=== PATIENT | male | born 1955 | race Caucasian/White ===

== ENCOUNTER 2017-05-16 09:01 | Emergency (ER) | payer MEDICARE ==
[~2017-05-16] VITALS: Ht 182.9 cm; Wt 130.0 kg
[~2017-05-16 09:01] MED LIST: DIGOXIN0.25 MG PO; DIOVAN80 MG PO; FEOSOL65 MG PO; FLEXERIL OR; FLEXERIL PO; HUMULIN 70/30 K1 INJ SC; HUMULIN R1 M1 SC; HUMULIN R1 ML IJ; JANUMET1 TA1 PO; LANTUS100 MG/ML SC; LOPID600 MG PO; MAXIDE1 COMBO PO; MORPHINE SUL30 MG PO; MULTIVITAMI1 PO; TYLENOL # 31 TAB PO; TYLENOL #4 PO; VITAMIN B-12500 MC1 PO; VITAMIN C1000 MG PO; [UNRECOGNIZED DRUG - OTHER] PO
[2017-05-16 10:35] LABS: HEMATOCRIT 37.5 % (39.0-50.0); IMMATURE GRANULOCYTES 0.3 % (0.0-1.0); MEAN CELL VOLUME 86.4 fL CALC (80.0-100.0); MEAN CORPUSCULAR HGB CONC 34.7 g/L CALC (32.0-36.0); NEUT# 6.41 thou/uL (1.82-7.42); RED BLOOD COUNT 4.34 mill/uL (4.70-6.10); RED CELL DISTRI WIDTH 12.6 % (11.5-15.5)
[2017-05-16 10:58] LABS: ANION GAP 15 (6-22 (CALC)); BUN 18 mg/dL (8-23); BUN/CREATININE RATIO 23 (12-20 (CALC)); CARBON DIOXIDE 29 mmol/l (22-30); CHLORIDE 102 mmol/l (95-108); CREATININE 0.8 mg/dL (0.7-1.3); GFR > 60 ML/MIN (>=60 (CALC)); GFR FOR AFR.AMER. > 60 ML/MIN (>=60 (CALC)); POTASSIUM 3.4 mmol/l (3.5-5.1); SODIUM 142 mmol/l (137-146)
[2017-05-16 11:49] LABS: HEMATOCRIT 39.4 % (39.0-50.0); HEMOGLOBIN 13.6 g/dl (14.0-18.0); IMMATURE GRANULOCYTES 0.5 % (0.0-1.0); MEAN CELL VOLUME 86.2 fL CALC (80.0-100.0); MEAN CORPUSCULAR HGB 29.8 pG CALC (26.0-32.0); MEAN CORPUSCULAR HGB CONC 34.5 g/L CALC (32.0-36.0); NEUT# 8.75 thou/uL (1.82-7.42); RED BLOOD COUNT 4.57 mill/uL (4.70-6.10); RED CELL DISTRI WIDTH 12.6 % (11.5-15.5)
[2017-05-16 12:28] VITALS: BP 154/72
== END 2017-05-16 12:38 | disposition left against medical advice (07) ==
LOC: ED 09:01
PROVIDERS: Family Medicine
DX: R07.9 Chest pain, unspecified (principal); R53.1 Weakness

== ENCOUNTER 2018-06-04 13:03 | Emergency (ER) | payer MEDICARE ==
[~2018-06-04] VITALS: Ht 182.9 cm; Wt 118.2 kg
[~2018-06-04 13:03] MED LIST changes: -CINNAMON500 M1 PO; -CYCLOBENZAPR5 MG PO; -HYDROXYCHLOR200 M1 PO; -LANTUS100 UNIT/M SC; -LOSARTAN POT50 MG PO; -LYRICA50 MG PO; -METFORMIN500 MG PO; -MORPHINE SULFAT30 M1 PO; -ROBITUSSIN AC10 ML PO; -TYLENOL CODEINE PO
[2018-06-04 14:03] LABS: IMMATURE GRANULOCYTES 0.9 % (0.0-5.0); MEAN CELL VOLUME 85.9 fL CALC (80.0-100.0); MEAN CORPUSCULAR HGB 27.6 pG CALC (26.0-32.0); MEAN CORPUSCULAR HGB CONC 32.1 g/L CALC (32.0-36.0); NEUT# 10.32 thou/uL (1.82-7.42); RED BLOOD COUNT 3.48 mill/uL (4.70-6.10); RED CELL DISTRI WIDTH 13.9 % (11.5-15.5)
[2018-06-04 14:06] LABS: HEMATOCRIT 29.9 % (39.0-50.0); HEMOGLOBIN 9.6 g/dl (14.0-18.0)
[2018-06-04 14:17] LABS: ALBUMIN 2.9 g/dL (3.2-5.0); ALKALINE PHOSPHATASE 76 u/l (38-126); ANION GAP 15 (6-22 (CALC)); BILIRUBIN, TOTAL 0.3 mg/dL (0.0-1.4); BUN 14 mg/dL (8-23); BUN/CREATININE RATIO 25 (12-20 (CALC)); CARBON DIOXIDE 27 mmol/l (22-30); CHLORIDE 99 mmol/l (95-108); CREATININE 0.5 mg/dL (0.7-1.3); GFR > 60 ML/MIN (>=60 (CALC)); GFR FOR AFR.AMER. > 60 ML/MIN (>=60 (CALC)); POTASSIUM 3.8 mmol/l (3.5-5.1); SGOT/AST 14 u/l (19-48); SODIUM 137 mmol/l (137-146); TOTAL PROTEIN 6.3 g/dL (6.3-8.2)
[2018-06-04 14:21] LABS: LIPASE 39 u/l (23-300)
[2018-06-04] MEDS ORDERED: ROBITUSSIN AC10 ML PO (16:32)
[2018-06-04 16:33] LABS: URINE BILIRUBIN - DIPSTICK NEGATIVE (NEGATIVE); URINE BLOOD DIPSTICK TRACE-INTACT (NEGATIVE); URINE COLOR YELLOW; URINE GLUCOSE - DIPSTICK NEGATIVE (NEGATIVE); URINE KETONE NEGATIVE (NEGATIVE); URINE LEUK ESTERASE NEGATIVE (Negative); URINE NITRITE - DIPSTICK NEGATIVE (Negative); URINE PROTEIN - DIPSTICK NEGATIVE (NEG-TRACE); URINE SPECIFIC GRAVITY 1.025; URINE UROBILINOGEN - DIPSTICK 0.2 E.U./dL (0.2)
[2018-06-04] MEDS ORDERED: LYRICA50 MG PO (16:34)
[2018-06-04 16:35] LABS: URINE CLARITY CLEAR
[2018-06-04] MEDS ORDERED: MORPHINE SULFAT30 M1 PO (16:36)
[2018-06-04] MEDS ORDERED: LOSARTAN POT50 MG PO (16:37)
[2018-06-04] MEDS ORDERED: METFORMIN500 MG PO (16:40)
[2018-06-04] MEDS ORDERED: LANTUS100 UNIT/M SC (16:47)
[2018-06-04] MEDS ORDERED: TYLENOL CODEINE PO (16:51)
[2018-06-04] MEDS ORDERED: CYCLOBENZAPR5 MG PO (16:52)
[2018-06-04] MEDS ORDERED: HYDROXYCHLOR200 M1 PO (17:21)
[2018-06-04] MEDS ORDERED: CINNAMON500 M1 PO (17:29)
[2018-06-04 19:25] VITALS: BP 147/80
--- NOTE | 2018-06-07 07:35 | NUR ---
CRITICAL PRELIMINARY CULTURE RESULTS CALLED AND FAXED TO RICARDO LOERA AT [address] 2 BOTTLES GRAM (+) COCCI. FAX# [phone] FINAL C+S TO FOLLOW AVAILABLE.
== END 2018-06-04 19:27 | disposition short-term general hospital (02) ==
LOC: ED 13:03 → ED-I 15:00 → ED 19:27
PROVIDERS: Emergency Medicine
DX: J86.9 Pyothorax without fistula (principal); R10.31 Right lower quadrant pain; D64.9 Anemia, unspecified; E11.9 Type 2 diabetes mellitus without complications; I11.0 Hypertensive heart disease with heart failure; I50.9 Heart failure, unspecified; M06.9 Rheumatoid arthritis, unspecified; M32.9 Systemic lupus erythematosus, unspecified
CPT/HCPCS: Q9967

== ENCOUNTER → 2018-06-04 | Outpatient (REF) | payer MEDICARE ==
[~2018-06-04] MED LIST changes: +CINNAMON500 M1 PO; +CYCLOBENZAPR5 MG PO; +HYDROXYCHLOR200 M1 PO; +LANTUS100 UNIT/M SC; +LOSARTAN POT50 MG PO; +LYRICA50 MG PO; +METFORMIN500 MG PO; +MORPHINE SULFAT30 M1 PO; +ROBITUSSIN AC10 ML PO; +TYLENOL CODEINE PO
[2018-06-04 12:02] LABS: IMMATURE GRANULOCYTES 0.7 % (0.0-5.0); MEAN CELL VOLUME 86.5 fL CALC (80.0-100.0); MEAN CORPUSCULAR HGB 27.4 pG CALC (26.0-32.0); MEAN CORPUSCULAR HGB CONC 31.7 g/L CALC (32.0-36.0); NEUT# 15.35 thou/uL (1.82-7.42); RED BLOOD COUNT 2.3 mill/uL (4.70-6.10); RED CELL DISTRI WIDTH 13.9 % (11.5-15.5)
[2018-06-04 12:10] LABS: HEMATOCRIT 19.9 % (39.0-50.0); HEMOGLOBIN 6.3 g/dl (14.0-18.0)
[2018-06-04 12:17] LABS: ALKALINE PHOSPHATASE 83 u/l (38-126); ANION GAP 15 (6-22 (CALC)); BILIRUBIN, TOTAL 0.3 mg/dL (0.0-1.4); BUN 14 mg/dL (8-23); BUN/CREATININE RATIO 26 (12-20 (CALC)); CARBON DIOXIDE 29 mmol/l (22-30); CHLORIDE 97 mmol/l (95-108); CREATININE 0.5 mg/dL (0.7-1.3); GFR > 60 ML/MIN (>=60 (CALC)); GFR FOR AFR.AMER. > 60 ML/MIN (>=60 (CALC)); SGOT/AST 15 u/l (19-48); SODIUM 137 mmol/l (137-146); TOTAL PROTEIN 6.5 g/dL (6.3-8.2)
== END | disposition home or self-care (01) ==
LOC: LABSPEC 11:39
PROVIDERS: ATTEND Internal Medicine
DX: E11.9 Type 2 diabetes mellitus without complications (principal); I10 Essential (primary) hypertension; M06.9 Rheumatoid arthritis, unspecified; M32.9 Systemic lupus erythematosus, unspecified

== ENCOUNTER → 2018-06-26 | Outpatient (REF) | payer MEDICARE ==
[~2018-06-26] MED LIST changes: +CINNAMON500 M1 PO; +CYCLOBENZAPR5 MG PO; +HYDROXYCHLOR200 M1 PO; +LANTUS100 UNIT/M SC; +LOSARTAN POT50 MG PO; +LYRICA50 MG PO; +METFORMIN500 MG PO; +MORPHINE SULFAT30 M1 PO; +ROBITUSSIN AC10 ML PO; +TYLENOL CODEINE PO
== END | disposition home or self-care (01) ==
LOC: LABSPEC 18:22
PROVIDERS: ATTEND Internal Medicine
DX: J43.0 Unilateral pulmonary emphysema [MacLeod's syndrome] (principal); Z79.2 Long term (current) use of antibiotics

== ENCOUNTER → 2018-06-30 | Outpatient (REF) | payer MEDICARE ==
[2018-06-30 18:46] LABS: HEMATOCRIT 30.2 % (39.0-50.0); HEMOGLOBIN 9.2 g/dl (14.0-18.0); IMMATURE GRANULOCYTES 0.4 % (0.0-5.0); MEAN CELL VOLUME 90.7 fL CALC (80.0-100.0); MEAN CORPUSCULAR HGB 27.6 pG CALC (26.0-32.0); MEAN CORPUSCULAR HGB CONC 30.5 g/L CALC (32.0-36.0); NEUT# 4.65 thou/uL (1.82-7.42); RED BLOOD COUNT 3.33 mill/uL (4.70-6.10); RED CELL DISTRI WIDTH 15.9 % (11.5-15.5)
[2018-06-30 19:18] LABS: ALBUMIN 2.9 g/dL (3.2-5.0); ALKALINE PHOSPHATASE 92 u/l (38-126); ANION GAP 12 (6-22 (CALC)); BILIRUBIN, TOTAL 0.2 mg/dL (0.0-1.4); BUN 15 mg/dL (8-23); BUN/CREATININE RATIO 22 (12-20 (CALC)); CARBON DIOXIDE 28 mmol/l (22-30); CHLORIDE 104 mmol/l (95-108); CREATININE 0.7 mg/dL (0.7-1.3); GFR > 60 ML/MIN (>=60 (CALC)); GFR FOR AFR.AMER. > 60 ML/MIN (>=60 (CALC)); POTASSIUM 4.1 mmol/l (3.5-5.1); SGOT/AST 17 u/l (19-48); SODIUM 140 mmol/l (137-146); TOTAL PROTEIN 5.6 g/dL (6.3-8.2)
== END | disposition home or self-care (01) ==
LOC: LABSPEC 18:04
PROVIDERS: ATTEND Internal Medicine Infectious Disease
DX: Z51.81 Encounter for therapeutic drug level monitoring (principal); Z79.2 Long term (current) use of antibiotics

== ENCOUNTER 2020-06-04 11:48 | Inpatient (IN) | payer MEDICARE ==
[2020-06-04] VITALS (8 sets, daily range): BP systolic 104–140; BP diastolic 51–60
[~2020-06-04] VITALS: Ht 182.9 cm; Wt 126.0 kg
[~2020-06-04 11:48] MED LIST changes: +COZAAR100 MG PO; -LOSARTAN POT50 MG PO
--- NOTE | 2020-06-04 11:48 | NUR ---
TO ROOM 9 VIA EMS STRETCHER; ASSISTED ONTO ER STRETCHER WITH 4 PERSON ASSIST. BEDSIDE REPORT RECEIVED FROM EMS. PT DISORIENTED AND LETHARGIC.
--- NOTE | 2020-06-04 12:05 | NUR ---
NOW AT BEDSIDE. BEDSIDE TRIAGE COMPLETED.
--- NOTE | 2020-06-04 12:07 | NUR ---
STROKE ALERT CALLED
[2020-06-04 12:21] LABS: HEMATOCRIT 33.7 % (39.0-50.0); IMMATURE GRANULOCYTES 3.8 % (0.0-5.0); MEAN CORPUSCULAR HGB 27.4 pG CALC (26.0-32.0); MEAN CORPUSCULAR HGB CONC 28.8 g/dL CAL (32.0-36.0); RED BLOOD COUNT 3.54 mill/uL (4.70-6.10); RED CELL DISTRI WIDTH 14.4 % (11.5-15.5)
[2020-06-04 12:23] LABS: HEMOGLOBIN 9.7 g/dl (14.0-18.0); MANUAL DIFFERENTIAL YES; MEAN CELL VOLUME 95.2 fL CALC (80.0-100.0); PLATELET COUNT 886 thou/uL (130-400)
[2020-06-04 12:27] LABS: GFR > 60 ML/MIN (>=60 (CALC)); GFR FOR AFR.AMER. > 60 ML/MIN (>=60 (CALC))
[2020-06-04 12:39] LABS: BAND 8 % (0-8)
[2020-06-04 12:41] LABS: ALBUMIN 3.2 g/dL (3.2-5.0); BILIRUBIN, TOTAL 0.5 mg/dL (0.0-1.4); CREATININE 1.5 mg/dL (0.7-1.3); TOTAL PROTEIN 6.8 g/dL (6.3-8.2)
[2020-06-04 12:53] LABS: POTASSIUM 2.8 mmol/l (3.5-5.1)
[2020-06-04 13:38] LABS: URINE BLOOD DIPSTICK LARGE (NEGATIVE); URINE COLOR YELLOW; URINE GLUCOSE - DIPSTICK 500 mg/dL (NEGATIVE); URINE KETONE >=80 mg/dL (NEGATIVE); URINE LEUK ESTERASE NEGATIVE (NEGATIVE); URINE NITRITE - DIPSTICK NEGATIVE (Negative); URINE PROTEIN - DIPSTICK TRACE mg/dL (NEG-TRACE); URINE SPECIFIC GRAVITY 1.025; URINE UROBILINOGEN - DIPSTICK 0.2 E.U./dL (0.2)
[2020-06-04 13:41] LABS: URINE BILIRUBIN - DIPSTICK SMALL (NEGATIVE)
[2020-06-04 13:42] LABS: URINE MUCUS FEW hpf (NONE-FEW); URINE RBC 25-50 RBC/hpf (0-5)
--- NOTE | 2020-06-04 14:00 | NUR ---
ADMITTING DR AT BEDSIDE
[2020-06-04 15:52] LABS: BUN 38 mg/dL (8-23); BUN/CREATININE RATIO 31 (12-20 (CALC)); CHLORIDE 104 mmol/l (95-108); CREATININE 1.2 mg/dL (0.7-1.3); GFR > 60 ML/MIN (>=60 (CALC)); GFR FOR AFR.AMER. > 60 ML/MIN (>=60 (CALC)); POTASSIUM 2.8 mmol/l (3.5-5.1); SODIUM 144 mmol/l (137-146)
[2020-06-04] MEDS ORDERED: METOPROL TAR25 MG PO (15:54)
[2020-06-04 15:57] LABS: ANION GAP 36 (6-22 (CALC))
--- NOTE | 2020-06-04 16:04 | NUR ---
662- BLOOD LAB GLUCOSE RESULTED FROM LAB. INSULIN DRIP REMAINS ON AND INFUSING AT 5 UNITS PER HOUR.
[2020-06-04 16:05] LABS: CARBON DIOXIDE 7 mmol/l (22-30)
[2020-06-04 17:30] LABS: BUN 37 mg/dL (8-23); BUN/CREATININE RATIO 33 (12-20 (CALC)); CHLORIDE 107 mmol/l (95-108); CREATININE 1.1 mg/dL (0.7-1.3); GFR > 60 ML/MIN (>=60 (CALC)); GFR FOR AFR.AMER. > 60 ML/MIN (>=60 (CALC)); POTASSIUM 2.9 mmol/l (3.5-5.1); SODIUM 146 mmol/l (137-146)
[2020-06-04 17:35] LABS: ANION GAP 35 (6-22 (CALC))
[2020-06-04 17:37] LABS: CARBON DIOXIDE 7 mmol/l (22-30)
--- NOTE | 2020-06-04 17:43 | NUR ---
DR SPEAR DISCUSSED CRITICAL RESULTS AND PATIENT WITH HOSPITALIST AT THIS TIME.
--- NOTE | 2020-06-04 18:25 | NUR ---
REPORT CALLED TO RICARDO IGLESIAS. ALL QUESTIONS ANSWERED.
--- NOTE | 2020-06-04 18:55 | NUR ---
PATIENT ARRIVES VIA STRETCHER ACCOMPANIED BY ER NURSE, ON BUSINESS AREA DIRECTOR, EYES CLOSED. WAS TRANSFERRED TO BED MAX ASSIST. AWAKENS EASILY WHEN SPOKEN TO, ANSWERS SIMPLE YES/NO QUESTIONS, FOLLOWS COMMANDS. IS ABLE TO RAISE ARMS UP, FEET UP, IS WEAK, BLE DRIFT TO BED. SHOWS HIS TEETH WHEN ASKED TO, NO DROOP NOTED. DENIES PAIN. NURSE ASSESSMENT PERFORMED. STRONG PEDAL PULSES. LEFT PUPIL 3MM BRISK. BLE 2+ PEDAL EDEMA, BLE DISCOLORATION NOTED, BILAT KNEES BRUISED. LEFT HEEL ULCER NOTED, HEELS RAISED FROM BED WITH PILLOW. LEFT BUTTOCK ULCER NOTED/SACRAL REDNESS NOTED. RIGHT- CHEST PORT INTACT, INSULIN DRIP INFUSING AT 5 UNITS/HR. RAC 20 AND LAC 22 G IV'S INTACT, SALINE LOCKED. ST ON TELEMETRY, HR 110'S. ON RA, NO SOB NOTED, SPO2 GREATER THAN 95%. BP 140'S SYSTOLIC. SHARMA PRESENT, NO URINE TO INPECT AT THIS YIME, NER NURSE REPORTS SHE EMPTIED ABOUT 1000 ML OUT. 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
--- NOTE | 2020-06-04 18:55 | NUR ---
1300 CC YELLOW UNRINE OUT OF SHARMA CATHETER AT THIS TIME.
--- NOTE | 2020-06-04 19:30 | NUR ---
BLOOD DRAWN FROM RIGH SIDE CHEST PORT, ACCUCHECK READ CRITICALLY HIGH, BLOOD SENT TO LAB FOR GLUCOSE.
[2020-06-04 19:44] LABS: BUN 37 mg/dL (8-23); BUN/CREATININE RATIO 38 (12-20 (CALC)); CHLORIDE 108 mmol/l (95-108); GFR > 60 ML/MIN (>=60 (CALC)); GFR FOR AFR.AMER. > 60 ML/MIN (>=60 (CALC)); SODIUM 148 mmol/l (137-146)
[2020-06-04 19:52] LABS: ANION GAP 22 (6-22 (CALC)); CARBON DIOXIDE 20 mmol/l (22-30)
[2020-06-04 19:53] LABS: POTASSIUM 2.4 mmol/l (3.5-5.1)
--- NOTE | 2020-06-04 20:11 | NUR ---
CALLED AND SPOKE TO DR CASTELLANOS TO NOTIFY OF [facility] CALLED HERE FOR CLARIFICATION ORDER FOR POTASSIUM CHLORIDE PRN ORDERS, DR LANDEROS WANTS POTASSIUM CHLORIDE TO BE TRANSFUSED UNTIL POTASSIUM IS GREATER THAN 4. ALSO, HE ASKED HOW MUCH IV FLUIDS PATIENT WAS ON, I NOTIFIED HIM PATIENT DID NOT ARRIVE WITH ANY IV FLUIDS, DR GRAY ORDERS NS 1 LITER BOLUS AND THAN 150 ML/HR AFTER. ORDERS SENT TO PHARMACY. 2017: [facility] CALLED TO NOTIFY OF ORDERS SENT.
--- NOTE | 2020-06-04 20:49 | NUR ---
SPOKE TO DR CASTELLANOS TO NOTIFY OF PATIENT NOW ONLY AROUSABLE TO PAINFUL STIMULI, WHEN HE DID ARRIVE HE WAS EASILY AROUSABLE, DROWSY, WAS FOLLOWING COMMANDS, SUCH RAISING HIS LEGS UP, HIS ARMS. WEAK MACHINE STITCHER PRESENT NO DROOP NOTED. DR CASTELLANOS ORDERED TO MONITOR LAB WORK, ELECTROLYTES, CONTINUE MONITORING.
[2020-06-04 21:33] LABS: ANION GAP 16 (6-22 (CALC)); BUN 34 mg/dL (8-23); BUN/CREATININE RATIO 38 (12-20 (CALC)); CARBON DIOXIDE 24 mmol/l (22-30); CHLORIDE 110 mmol/l (95-108); CREATININE 0.9 mg/dL (0.7-1.3); GFR > 60 ML/MIN (>=60 (CALC)); GFR FOR AFR.AMER. > 60 ML/MIN (>=60 (CALC)); POTASSIUM 2.5 mmol/l (3.5-5.1); SODIUM 148 mmol/l (137-146)
--- NOTE | 2020-06-04 21:49 | NUR ---
INSULIN DRIP TITRATED PER PROTOCOL. HEPARIN SUBCUTANEOUS GIVEN. PATIENT OPENS EYES AND CLOSES THEM RIGHT AWAY WHEN SPOKEN TO, HE IS GUARDED. NON-VERBAL. HR REMAINS TACHYCARDIC NO GREATER THAN 120 BPM. BP WNL. O2 GREATER THAN 95%. NO SOB NOTED, HOB ELEVEATED GREATER THAN 30 DEGREES. CALL LIGHT WITHIN REACH.
--- NOTE | 2020-06-04 22:52 | NUR ---
PATIENT NOTED TO TRYING TO TURN ON HIS RIGHT SIDE.
--- NOTE | 2020-06-04 23:04 | NUR ---
ACCUCHECK OBTAINED, NO TITRATION NEEDED PER INSULIN DRIP PROTOCOL. PATIENT OPENS EYES WHEN SPOKEN TO, CLOSES THEM RIGHT AWAY. [facility] CHEST PORT BLOOD OBTAINED FOR 2300 CH7 LAB WORK.
[2020-06-04 23:32] LABS: ANION GAP 13 (6-22 (CALC)); BUN 33 mg/dL (8-23); BUN/CREATININE RATIO 41 (12-20 (CALC)); CARBON DIOXIDE 26 mmol/l (22-30); CHLORIDE 111 mmol/l (95-108); CREATININE 0.8 mg/dL (0.7-1.3); GFR > 60 ML/MIN (>=60 (CALC)); GFR FOR AFR.AMER. > 60 ML/MIN (>=60 (CALC)); POTASSIUM 2.8 mmol/l (3.5-5.1); SODIUM 147 mmol/l (137-146)
[2020-06-05] VITALS (24 sets, daily range): BP systolic 91–154; BP diastolic 46–77
--- NOTE | 2020-06-05 00:29 | NUR ---
ACCUCHECK OBTAINED, NO CHANGES TO INSULIN DRIP. PATIENT IS GUARDED WHEN PERFORMING NURSING CARE. 3RD BAG OF POTASSIUM CHLORIDE 20 MEQ INFUSING NOW. AFEBILE.
--- NOTE | 2020-06-05 01:46 | NUR ---
ORDERS PLACED FOR AIR MATRESS FOR PATIENT WELL WOUND CARE CONSULT, DUE TO LEFT BUTTOCK AND LEFT HEEL ULCERS PRESENT ON ADMISSION. AQUACELL FOAM PAD APPLIED TO BUTTOCK, WELL NON ADHERENT GAUZE WITH GAUZE WRAP TO LEFT HEEL, BOTH CLEANED WITH SALINE AND PATTED DRY. BED BATH PROVIDED. PATIENT WAS ABLE TO HOLD ON TO BED RAILS TO ASSIST, REPOSITIONED TO RIGHT SIDE, HEEL PROTECTORS IN PLACE. HOB 30 DEGREES, NO ACUTE DISTRESS SHOWN.
[2020-06-05] MEDS ORDERED: BESIVANCE0.6 % OD (01:58)
[2020-06-05] MEDS ORDERED: SIMBRINZA1 SUS OD (01:59)
[2020-06-05] MEDS ORDERED: THERA TEARS A0.025 % OU (02:02)
[2020-06-05] MEDS ORDERED: AVENOVA OU (02:04)
[2020-06-05 02:30] LABS: ANION GAP 12 (6-22 (CALC)); BUN 34 mg/dL (8-23); BUN/CREATININE RATIO 47 (12-20 (CALC)); CARBON DIOXIDE 27 mmol/l (22-30); CHLORIDE 112 mmol/l (95-108); CREATININE 0.7 mg/dL (0.7-1.3); GFR > 60 ML/MIN (>=60 (CALC)); GFR FOR AFR.AMER. > 60 ML/MIN (>=60 (CALC)); POTASSIUM 2.7 mmol/l (3.5-5.1); SODIUM 149 mmol/l (137-146)
--- NOTE | 2020-06-05 03:13 | NUR ---
PATIENT IS AWAKE. I ASKED HIM IF HE REMEMBERS WHAT HAPPENED, WHY HE IS HERE. PATIENT STATES," ALL I REMEBER IS THEY BROUGHT ME IN WITH PNEUMONIA." PATIENT WAS EXPLAINED ABOUT HIS HIGH BLOOD SUGARS AND INSULIN DRIP. CALL LIGHT WITHIN REACH.
[2020-06-05 03:35] LABS: ANION GAP 11 (6-22 (CALC)); BUN 30 mg/dL (8-23); BUN/CREATININE RATIO 43 (12-20 (CALC)); CARBON DIOXIDE 27 mmol/l (22-30); CHLORIDE 113 mmol/l (95-108); CREATININE 0.7 mg/dL (0.7-1.3); GFR > 60 ML/MIN (>=60 (CALC)); GFR FOR AFR.AMER. > 60 ML/MIN (>=60 (CALC)); POTASSIUM 2.8 mmol/l (3.5-5.1); SODIUM 148 mmol/l (137-146)
--- NOTE | 2020-06-05 04:20 | NUR ---
patient awakens easily with noise, is able to cooperate, does not guard himself. no acute distress shown. afebrile. call light within reach.
[2020-06-05 05:39] LABS: HEMATOCRIT 28.3 % (39.0-50.0); HEMOGLOBIN 8.6 g/dl (14.0-18.0); IMMATURE GRANULOCYTES 0.8 % (0.0-5.0); MEAN CELL VOLUME 89.3 fL CALC (80.0-100.0); MEAN CORPUSCULAR HGB 27.1 pG CALC (26.0-32.0); MEAN CORPUSCULAR HGB CONC 30.4 g/dL CAL (32.0-36.0); NEUT# 13.39 thou/uL (1.82-7.42); RED BLOOD COUNT 3.17 mill/uL (4.70-6.10); RED CELL DISTRI WIDTH 14.3 % (11.5-15.5)
[2020-06-05 05:42] LABS: BUN 29 mg/dL (8-23); CARBON DIOXIDE 27 mmol/l (22-30); CHLORIDE 114 mmol/l (95-108); CREATININE 0.7 mg/dL (0.7-1.3); GFR > 60 ML/MIN (>=60 (CALC)); GFR FOR AFR.AMER. > 60 ML/MIN (>=60 (CALC)); POTASSIUM 2.6 mmol/l (3.5-5.1); SODIUM 149 mmol/l (137-146)
--- NOTE | 2020-06-05 05:55 | NUR ---
PATIENT IS AWAKE, WHEN ASKED IF HE REMEBERS IF I GAVE HIM AN INJECTION IN THE STOMACH LAST NIGHT, HE STATES, "YES." EXPLAINED HEPARIN INJECTION INDICATION. PATIENT ABLE TO TOLERATE INJCETION. FOLLWOS COMMANDS AFTER REPETETIVE CUEING, SUCH LIFTING HIS ARM UP TO SCAN WRISTBAND.
[2020-06-05 05:59] LABS: ALBUMIN 2.3 g/dL (3.2-5.0)
--- NOTE | 2020-06-05 06:15 | NUR ---
CALLED LAB AND SPOKE TO TONYA REGARDING NO ANION GAP LAB READING THIS MORNING FOR AM LABS. HE REPORTS HE WILL CALL ME BACK REGARDING MATTER.
--- NOTE | 2020-06-05 06:35 | NUR ---
SPOKE TO DR CASTELLANOS REGARDING LAB RESULTS AND GLUCOSE. NOTIFIED OF CURRENT IV FLUIDS. NOTIFIED PATIENT IS MORE ALERT. NEW ORDERS OBTAINED. GIVE POTASSIUM CHLORIDE 80 MEQ PO X1 NOW, FEED PATIENT THIS AM, LANTUS 65 UNITS SUBCUTANEOUS X1 NOW, STOP INSULIN DRIP 1 HR LATER. CHECK POTASSIUM 2 HRS ATER. CAN STOP IV POTASSIUM CHLORIDE PRN 20 MEQ AFTER CURRENT ONE FINISHED INFUSING. CHECK MAGNESIUM. ALL ORDERS PLACED.
--- NOTE | 2020-06-05 07:25 | NUR ---
pt resting in bed with eyes closed; no apparent distress noted; easy to arouse; pt offers no complaints; assessment completed at this time; pt alert and oriented; denies pain; no n/v noted per conventional underwriter; pt appears drowsy/ slow to respond to verbal questions and commands; pt able to answer this conventional underwriter questions and follow call commands requested; resp even and unlabored; lungs clear/ coarse right wallace; skin color wnl; ra; sales account associate cough noted; hr reg; strong pulses; edema noted to ble; st on monitor; discoloration noted to ble; abd soft with bs present; dk green/ tarry stool noted; pericare per staff; vogel to gravity draining well; cath strap intact; #22 saline locked to lfa; #20 patent to rac with ivf/ k-rider infusing without complication; right chest port accessed with insulin gtt per protocol; no redness or edema noted at sites; dressings cdi to left heel and sacrum/buttocks; heel protectors intact; pt repositioned to left side; am meds explained and administered; call light within reach; will continue to monitor
--- NOTE | 2020-06-05 08:03 | NUR ---
resting with eyes closed; easily aroused; offers no complaints; declined breakfast/ staffed offered to feed; vogel to gravity; will continue to monitor
--- NOTE | 2020-06-05 08:05 | NUR ---
spouse called this short story writer; passcode verified; update provided
--- NOTE | 2020-06-05 10:07 | NUR ---
resting in bed with eyes closed; no apparent distress noted; resp even and unlabored; iv intact and patent; no redness or edema noted at site; vogel to gravity; st on monitor; call light within reach; will continue to monitor
--- NOTE | 2020-06-05 12:04 | NUR ---
resting in bed with eyes closed; easily aroused; offers no complaints; iv intact and patent; vogel to gravity; repositioned; database report writer at bedside to attempt to feed pt; pt declined; will attempt later; call light within reach; will continue to monitor
--- NOTE | 2020-06-05 14:20 | NUR ---
pt resting in bed with eyes closed; no apparent distress noted; easily aroused; offers no complaints; remains slow to respond; iv intact and patent; no redness or edema noted at site; st on monito; complete bed bath, catheter care and linen change; black tarry appearing bm noted; specimen collected for occult blood screening; skin pale appearing; repositioned to right side; call light within reach; will continue to monitor
[2020-06-05 16:00] LABS: HEMOGLOBIN 8.2 g/dl (14.0-18.0)
--- NOTE | 2020-06-05 16:03 | NUR ---
resting in bed with eyes closed; no apparent distress noted; sr on monitor; vogel to gravity; call light within reach; will continue to monitor
--- NOTE | 2020-06-05 16:08 | NUR ---
spouse called this flex o writer operator; passcode verified; update provided
--- NOTE | 2020-06-05 17:55 | NUR ---
blood specimen obtained via port for type and screen
--- NOTE | 2020-06-05 18:05 | NUR ---
pt cleansed of XLG loose tarry black stool; pt moved to air mattress at this time; pt noted with redness to cheeks and neck; iv intact and patent; no redness or edema noted at site; sr on monitor; vogel to gravity; repositioned; pt continues to declined meal; plan of care/ type and screen explained; call light within reach
--- NOTE | 2020-06-05 20:00 | NUR ---
PATIENT AWAKENS TO VERBAL STIMULI, CLOSES EYES RIGHT AWAY. IS ORIENTED TO NAME, BIRTHDATE YEAR, AND PLACE ONLY. IS ABLE TO FOLLOW COMMANDS. IS ABLE TO LIFT HIS LEGS UP, MODERATE CONSTRUCTION PROJECT MGR PRESENT BILATERALLY. ON RA, NO SOB NOTED. VS WNL. NURSE ASSESSMNENT PERFORMED.AIR MATRESS INTACT, IVX2 INTACT, FLUSH PROPERLY. RIGHT CHEST PORT INTACT, NS AT 100 ML/HR AND PROTONIX DRIP AT 10 ML/HR. HEEL PROTECTORS IN PLACE AND HEELS ELEVATED WITH PILLOW. EXPLAINED POC. PATIENT IS ABLE TO TURN SLIGHTLY TO RIGHT WHEN ASKED FOR AUSCULTATION OF LS. NO COMPLAINTS OR NEEDS AT THIS TIME. CALL LIGHT WITHIN REACH.
--- NOTE | 2020-06-05 21:10 | NUR ---
PATIENT'S CALLED HERE EARLIER, WAS UNABLE TO TAKE CALL AT THAT TIME. I RETURNED CALL AND SHE WAS ABLE TO PROVIDE PASSCODE. UPDATES PROVIDED, SHE WAS ALSO ABLE TO CONSENT TO TRANSFUSE BLOOD IF PATIENT NEEDS IT.
--- NOTE | 2020-06-05 21:34 | NUR ---
PATIET WAS PULLED UP, HOB HIGH TOLEDO'S. WAS ABLE TO SWALLOW HIS MEDICATIONS WITH PUDDING AND UNSWEETENED TEA. WAS ENCOURAGED TO SPOON FEED HIMSELF, WAS ABLE TO DO IT WITH SOME ASSISTANCE. ORANGE JUICE GIVEN WELL. EYE DROPS INSTILLED ORDERED. HOB REMAINS ELEVATED. CALL LIGHT WITHIN REACH.
--- NOTE | 2020-06-05 22:13 | NUR ---
BLOOD DRAWN FROM RIGHT CHEST PORT FOR H/H DUE. HOB LOWERED TO 30 DEGREES. NO ACUTE DISTRES SHOWN.
[2020-06-05 22:16] LABS: HEMATOCRIT 29.3 % (39.0-50.0); HEMOGLOBIN 8.8 g/dl (14.0-18.0)
--- NOTE | 2020-06-05 22:20 | NUR ---
HEMOGLOBIN 8 AND BP 131/60 MMHG. NO NEED TO TRANSFUSE PRBC'S AT THIS TIME. ORDERS TO DRAW BLOOD AT 0400. WILL CONTINUE TO MONITOR.
[2020-06-06] VITALS (18 sets, daily range): BP systolic 110–156; BP diastolic 52–109
--- NOTE | 2020-06-06 00:14 | NUR ---
AFEBRILE. PATIENT AWAKENS WITH VERBAL STIMULI. NO ACUTE DISTRESS SHOWN. NE BAG IF IV PROTONIX INFUSING.
--- NOTE | 2020-06-06 00:59 | NUR ---
PATIENT HAD X-LARGE, BLACK TARRY LOOSE BM. BED BATHE PROVIDED. DRESSING ON LEFT HEEL CHANGED DUE TO OUT OF PLACE. HEEL PROTECTORS INTACT, HEELS ELEVATED. AQUACELL FOAM PAD APPLIED TO BUTTOCKS. NO COMPLAINTS OR NEEDS ST THIS TIME. CALL LIGHT WITHIN REACH.
--- NOTE | 2020-06-06 04:00 | NUR ---
WAS ABLE TO DRAW BLOOD FROM RIGHT CHEST PORT FOR 0400 HAND H ORDERED. PATIENT AWAKENS EASILY WHEN SPOKEN TO. NO ACUTE DISTRESS SHOWN. ACCUCHECK OBTAINED WELL SINCE HE WAS 85 MG/DL LAST NIGHT, 175 MG/DL THIS MORNING.
[2020-06-06 04:35] LABS: HEMATOCRIT 28.3 % (39.0-50.0); HEMOGLOBIN 8.5 g/dl (14.0-18.0)
[2020-06-06 04:54] LABS: ANION GAP 8 (6-22 (CALC)); BUN 18 mg/dL (8-23); BUN/CREATININE RATIO 33 (12-20 (CALC)); CARBON DIOXIDE 27 mmol/l (22-30); CHLORIDE 117 mmol/l (95-108); CREATININE 0.6 mg/dL (0.7-1.3); GFR > 60 ML/MIN (>=60 (CALC)); GFR FOR AFR.AMER. > 60 ML/MIN (>=60 (CALC)); POTASSIUM 2.9 mmol/l (3.5-5.1); SODIUM 149 mmol/l (137-146)
--- NOTE | 2020-06-06 06:06 | NUR ---
IV POTASSIUM 20 MEQ INFUSING AT 50 ML/HR FOR LOW POTASSIUM THIS MORNING 2.9. NO BM NOTED AT THIS TIME. PATIENT RESTS WITH EYES CLOSED. NO ACUTE DISTRESS SHOWN.
--- NOTE | 2020-06-06 06:45 | NUR ---
REPORT RECEIVED FROM MARY SILVA. CARE ASSUMED.
--- NOTE | 2020-06-06 07:40 | NUR ---
PT RESTING IN BED WITH EYES CLOSED. AROUSES TO VERBAL STIMULI. PT IS ALERT AND ORIENTED X2. WHEN ASKED THE YEAR PT STATES 25. SHIFT ASSESSMENT COMPLETED AT THIS TIME. IV PATENT X3. PT THEN SET UP FOR AM MEAL. CALL LIGHT IN REACH. WILL CO NTINUE TO MONITOR.
--- NOTE | 2020-06-06 08:35 | NUR ---
DR LARSON NOTIFIED OF NEED FOR CONSULT.
--- NOTE | 2020-06-06 08:40 | NUR ---
DR RAMOS FROM WOUND CARE AT BEDSIDE.
--- NOTE | 2020-06-06 09:18 | NUR ---
DR LUCAS WILL RETURN. PARCEL POST ORDER CLERK AT BEDSIDE FOR BM INCONTINENCE.
[2020-06-06 10:14] LABS: HEMATOCRIT 28.5 % (39.0-50.0); HEMOGLOBIN 8.5 g/dl (14.0-18.0)
--- NOTE | 2020-06-06 10:15 | NUR ---
PHONED PT TO GIVE UPDATE.
--- NOTE | 2020-06-06 10:36 | NUR ---
DR RAMOS INTO SEE PATIENT NEW ORDERS RECEIVED. PT INCONTINENT OF STOOL AT THIS TIME. PT CLEANSED.
--- NOTE | 2020-06-06 12:08 | NUR ---
PT RESTING IN BED WITH EYES CLOSED. HELD NOON INSULIN DUE TO NPO STATUS AND PT RECEIVING LEVEMIR AT 0900 MEDS PASS. CALL LIGHT IN REACH. WILL CONTINUE TO MONITOR.
--- NOTE | 2020-06-06 13:16 | NUR ---
DR LARSON AT BEDSIDE AT THIS TIME.
--- NOTE | 2020-06-06 14:07 | NUR ---
PHYSICAL THERAPY AT BEDSIDE.
--- NOTE | 2020-06-06 16:18 | NUR ---
PT RESTING IN BED WITH EYES CLOSED. RESP ARE EVEN AND UNLABORED. NO DISTRESS NOTED. CALL LIGHT IN REACH. WILL CONTINUE TO MONITOR.
--- NOTE | 2020-06-06 18:03 | NUR ---
pts updated on pt status. pt did eat more tonight. connected to cordless phone to talk to pt.
--- NOTE | 2020-06-06 20:00 | NUR ---
awakens easily. nad. production superintendent shows sinus tach hr 106. #20 rac & # 22 lfa saline locks. ns w 20 kcl infusing @ 50cchr per rt chest port. refused po intake. vogel cath in place. urine clear yellow. dsg cdi to lt heel. heel protectors cont. open area cont to lt buttocks. incont mod amt dk brown stool. pt cleansed. pt needs MUCH encouragement to assist with care. air mattress & fall precautions cont. turned & repositioned. requires total care for all needs.
--- NOTE | 2020-06-06 22:00 | NUR ---
eyes closed. no distress. stack clerk shows sinus tach hr 104.
--- NOTE | 2020-06-06 23:00 | NUR ---
pt c/o "trouble breathing." pulse ox 97%. checked pulse ox with rt machine & remains 97%. incont mod amt liquid stool. pt cleansed & turned. no further c/o.
--- NOTE | 2020-06-06 23:20 | NUR ---
pt called this technical publications writer & requested "can someone fix my pillow?" pillow turned over.
[2020-06-07] VITALS (11 sets, daily range): BP systolic 111–157; BP diastolic 65–77
--- NOTE | 2020-06-07 02:00 | NUR ---
resting quietly. resps even & unlabored. no apparent distress. pvc monitor shows sinus rhythm hr 92.
--- NOTE | 2020-06-07 04:40 | NUR ---
blood drawn & sent to lab. pt is incont green watery stool. pt cleansed. linens changed. lt foot dressing changed. new heel protectors applied. asked pt if he knew when he was incont. pt said "yes." instructed pt to notify staff when incont. pt then said "i went again." small amt slimey green sunstance. stool spec collected. dignishield placed.
[2020-06-07 05:42] LABS: HEMATOCRIT 31.4 % (39.0-50.0); HEMOGLOBIN 9.3 g/dl (14.0-18.0); IMMATURE GRANULOCYTES 1.8 % (0.0-5.0); MEAN CELL VOLUME 90.2 fL CALC (80.0-100.0); MEAN CORPUSCULAR HGB 26.7 pG CALC (26.0-32.0); MEAN CORPUSCULAR HGB CONC 29.6 g/dL CAL (32.0-36.0); NEUT# 10.73 thou/uL (1.82-7.42); RED BLOOD COUNT 3.48 mill/uL (4.70-6.10)
[2020-06-07 06:04] LABS: ALBUMIN 2.3 g/dL (3.2-5.0); BILIRUBIN, TOTAL 0.5 mg/dL (0.0-1.4); BUN 9 mg/dL (8-23); BUN/CREATININE RATIO 17 (12-20 (CALC)); CARBON DIOXIDE 26 mmol/l (22-30); CHLORIDE 114 mmol/l (95-108); CREATININE 0.5 mg/dL (0.7-1.3); GFR > 60 ML/MIN (>=60 (CALC)); GFR FOR AFR.AMER. > 60 ML/MIN (>=60 (CALC)); SGOT/AST 24 u/l (19-48); SODIUM 147 mmol/l (137-146)
[2020-06-07 06:10] LABS: ALKALINE PHOSPHATASE 70 u/l (38-126); ANION GAP 9 (6-22 (CALC)); POTASSIUM 2.4 mmol/l (3.5-5.1); TOTAL PROTEIN 5.4 g/dL (6.3-8.2)
[2020-06-07 06:30] LABS: C. DIFFICILE TOXIN A&B NEGATIVE (NEGATIVE)
--- NOTE | 2020-06-07 06:45 | NUR ---
REPORT RECEIVED FROM ROMI HILL. CARE ASSUMED.
--- NOTE | 2020-06-07 07:20 | NUR ---
PT RESTING IN BED WITH EYES CLOSED. PT OPENS EYE TO VERBAL STIMULI. PT DOES NOT LEAVE EYES OPEN FOR ANY LENGTH OF TIME. PT DOES NOT VERBALLY RESPOND TO QUESTIONS AT THIS TIME. ACCU CHECK RECHECK 106. SHIFT ASSESSMENT COMPLETED AT THIS TIME. IV PATENT X3. CALL LGT IN REACH. WILL CONTINUE TO MONITOR.
--- NOTE | 2020-06-07 07:50 | NUR ---
PRELIMINARY BLOOD CX SHOWS GRAM POSITIVE COCCI IN 1 OF [address] B[address]ES[address] RESULTS REPORTED TO DR DELATORRE. WILL F/U WITH FINAL
--- NOTE | 2020-06-07 08:14 | NUR ---
DR DELATORRE AT BEDSIDE AT THIS TIME.
--- NOTE | 2020-06-07 08:19 | NUR ---
RT AT BEDSIDE FOR ABG
--- NOTE | 2020-06-07 08:43 | NUR ---
PT ASSISTED UP TO RECLINER AT THIS TIME. SET UP FOR AM MEAL.
--- NOTE | 2020-06-07 08:45 | NUR ---
PT NOTE Patient was in semi-fowlers position as entered room, Nurse and [employer]COMMER[employer] MERCHANDISING MANAGER in room cleaning patient. Patient agreed to participate in therapy session. Bed mobility from semi-fowlers to saeted position MAX A. Staic seated balance patient tends to lean posterior, patient stated he felt a little dizzy. Patient executed deep breathing techniques until he was feeling better w/o being dizzy. Sit>stand MAX A, static standing balance adequate, verbal cues for patient to keep head up and chest out. Difficulty raising head, executed 3 times. Transfer from bed to chair, MAX A verbal cues for proper foot placement as he scoots 4 steps to chair. Verbal cues to retro ambulate until he feels back of knees against chair. Stand>sit MOD A, verbal cues for proper hand placement as he descends to a seated position, patient attemopted to lower self but arms weak and he plopped down. Seated in chair tray table and call bel by patient side w/ nurse and [employer]COMMER[employer] MERCHANDISING MANAGER still present in room as exited. [facility] 6 score 0f 7--[facility] care
--- NOTE | 2020-06-07 10:21 | NUR ---
PT ASSISTED BACK TO BED PER PT REQUEST AT THIS TIME. PT IS ALERT NAD ORIENTED X3
--- NOTE | 2020-06-07 12:36 | NUR ---
PT ATE 100% OF LUNCH. PT HAVING MUCH IMPROVEMENT IN RESPONSIVENESS AND ORIENTATION. WILLL PLAN TO GET PATIENT OUT OF BED LATER THIS AFTERNOON.
--- NOTE | 2020-06-07 13:58 | NUR ---
FIRE FIGHTER AT BEDSIDE AT THIS TIME.
--- NOTE | 2020-06-07 16:00 | NUR ---
PT RESTING IN BED WITH EYES CLOSED. RESP ARE EVEN AND UNLABORED. NO DISTRESS NOTED. CALL LIGHT IN REACH. WILL CONTINUE TO MONITOR.
--- NOTE | 2020-06-07 17:33 | NUR ---
PT CLEANED UP. RECTAL RUBE CAME OUT DURING TURNING. DID NOT REPLACE DUE TO LOW OUTPUT.
[2020-06-07 17:51] LABS: ANION GAP 7 (6-22 (CALC)); BUN 5 mg/dL (8-23); BUN/CREATININE RATIO 11 (12-20 (CALC)); CARBON DIOXIDE 26 mmol/l (22-30); CHLORIDE 115 mmol/l (95-108); CREATININE 0.5 mg/dL (0.7-1.3); GFR > 60 ML/MIN (>=60 (CALC)); GFR FOR AFR.AMER. > 60 ML/MIN (>=60 (CALC)); POTASSIUM 3.1 mmol/l (3.5-5.1); SODIUM 145 mmol/l (137-146)
--- NOTE | 2020-06-07 19:50 | NUR ---
awakened easily. no acute distress. more awake. looks better this shift. said he doesn't remember this property underwriter from last night. clinical document improvement educator shows sinus tach hr 112. 1/2ns w 20kcl infusing @ 50cchr per rt chest port. saline lock rac found dislodged. dsg to lt heel cdi. vogel cath in place. urine yellow. incont mod amt green liquid slimey stool. pt cleansed & butt paste applied to buttocks which is very red/gaulded. within approx 5 minutes pt said "i went again." incont of mod amt green slimey stool. pt cleansed again, butt paste reapplied & dignishield inserted. turned & repositioned to lt side. pt requested "raise my head up." remote & instructions given. pt requires MUCH encouragement to assist with care. requires total care for all needs.
--- NOTE | 2020-06-07 22:30 | NUR ---
pt called to desk & requested "turn me over." entered pts room. pt said "i'm crooked." encouraged pt to straighten self. pt said "i can't." asked pt how he would straighten self @ home. pt said "i would get out of bed & move myself." instructed pt this manual writer would help him stand & move. pt declined offer. pt adjusted self slightly then requested his hob to be raised. instructed again on use of remote. pt cont to require MUCH encouragement to assist with care.
[2020-06-08] VITALS (18 sets, daily range): BP systolic 110–171; BP diastolic 55–84
--- NOTE | 2020-06-08 00:01 | NUR ---
eyes closed. resps even & unlabored. nad. cardiac rehabilitation program director shows sinus tach hr 102.
--- NOTE | 2020-06-08 02:00 | NUR ---
pt sounds wet & has wet cough. sao2 85% on room air. o2 began @ 2 l/m per nc. lasix 20mg ivp given. rt notified of need for abgs. xray notified of need for cxr.
--- NOTE | 2020-06-08 02:15 | NUR ---
rt here. abgs drawn. xray here. pcxr obtained.
--- NOTE | 2020-06-08 02:40 | NUR ---
blood drawn & sent to lab.
[2020-06-08 02:52] LABS: HEMATOCRIT 31.8 % (39.0-50.0); HEMOGLOBIN 9.5 g/dl (14.0-18.0); IMMATURE GRANULOCYTES 1.5 % (0.0-5.0); MEAN CELL VOLUME 91.1 fL CALC (80.0-100.0); MEAN CORPUSCULAR HGB 27.2 pG CALC (26.0-32.0); MEAN CORPUSCULAR HGB CONC 29.9 g/dL CAL (32.0-36.0); NEUT# 12.51 thou/uL (1.82-7.42); RED BLOOD COUNT 3.49 mill/uL (4.70-6.10); RED CELL DISTRI WIDTH 14.9 % (11.5-15.5)
--- NOTE | 2020-06-08 03:00 | NUR ---
moist wet cough conts. sao2 90%. o2 conts pt denies resp diff. vogel draining well.
[2020-06-08 03:11] LABS: ALBUMIN 2.4 g/dL (3.2-5.0); ALKALINE PHOSPHATASE 70 u/l (38-126); ANION GAP 10 (6-22 (CALC)); BILIRUBIN, TOTAL 0.6 mg/dL (0.0-1.4); BUN 5 mg/dL (8-23); BUN/CREATININE RATIO 10 (12-20 (CALC)); CARBON DIOXIDE 26 mmol/l (22-30); CHLORIDE 114 mmol/l (95-108); CREATININE 0.5 mg/dL (0.7-1.3); GFR > 60 ML/MIN (>=60 (CALC)); GFR FOR AFR.AMER. > 60 ML/MIN (>=60 (CALC)); POTASSIUM 3.6 mmol/l (3.5-5.1); SGOT/AST 21 u/l (19-48); SODIUM 146 mmol/l (137-146); TOTAL PROTEIN 5.5 g/dL (6.3-8.2)
--- NOTE | 2020-06-08 07:45 | NUR ---
PT REPORT RECEIVED FROM SENIOR BOOKKEEPER. ALERT/ORIENTED X3 AT THIS TIME. CALL LIGHT WITHIN REACH
--- NOTE | 2020-06-08 09:27 | NUR ---
PT STATES SHE IS GOING TO SEND PICS OF HIS MEDICATIONS TO HIS PHONE BECAUSE HER AND HER KIDS ALL HAVE COVID AND CANT LEAVE HOUSE.
--- NOTE | 2020-06-08 10:12 | NUR ---
PT NOTE Patient was in semi-fowlers position as entered room, patient agreed to participate in therapy session. Semi-fowlers position>sit (Max ), sit>stand (MAX A). staic seated balance x 2 min, slight dizziness noted, patient executed deep breathing techniques, execreting phlem. Patient O2 states dipped to 86 but increased after breathing to 97. Transfer from bed>chair MAX A, stand>sit (MAX A). Vebal cues for proper hand placement as he decsends to a seated position. Nurse re applied IV Tube as it became undine during tranfer. Nurse checked all positons and stated he was ok. Patient remained in chair as exited room w/ tray table and call [place] by patient side. [facility] 6 score of 7--shelter care
--- NOTE | 2020-06-08 10:12 | NUR ---
PT PLACED PT IN CHAIR, AND SPEECH THERAPY IS HERE TO VERIFY PT CAN BE PLACED ON A REGULAR DIET INSTEAD OF FULL
--- NOTE | 2020-06-08 13:55 | NUR ---
PT RESTING QUIETLY ON STRETCHER, NO COMPLAINTS AT THIS TIME. VITAL SIGNS STABLE. IV FLUIDS INFUSING.
--- NOTE | 2020-06-08 20:05 | NUR ---
PT AWAKE RESTING IN BED. PT TURNED AND REPOSITIONED FOR COMFORT. PT IS ALERT AND ORIENTED X4. O2 N/C ON AT 2L. O2 SAT 100%. RESP EVEN AND UNLABORED. LUNGS REVEAL DIMINISHED BREATH SOUNDS IN ALL LOBES. ABD SOFT AND NONDISTENDED WITH BOWEL SOUNDS PRESENT. PT DOES HAVE A +1 BILAT LOWER EXT EDEMA NOTED. PEDAL PULSES PALPATED BILAT. RT SUBCLAVIAN PORT IS PATENT WITH NO SWELLING NOTED, DRESSING CLEAN AND DRY. IVF 1/2NSS+20KCL AT 20CC/HR. LEFT HEEL DRESSING CLEAN AND DRY. PT ENCOURAGED TO TURN ON HIS SIDE BUT REFUSES RIGHT NOW. PT IS AFEBRILE. AIR MATTRESS NON BED. DENIES ANY DISCOMFORT. TELE ST LOW 100'S. FREQUENT ROUNDS MADE. CALL HOOKS WITH IN REACH.
--- NOTE | 2020-06-08 21:30 | NUR ---
PT WOKE. ATE 100% OF EVENING SNACK. RESP EVEN AND UNLABORED. DENIES ANY DISCOMFORT. PORT PATENT. FREQUENT ROUNDS MADE. CALL HOOKS WITHIN REACH.
--- NOTE | 2020-06-08 22:05 | NUR ---
PT REPOSITIONED IN BED FOR COMFORT. RESP EVEN AND UNLABORED. O2 SAT 100%. SHARMA IS PATENT. IV PORT PATENT. PT OFFERS NO COMPLAINTS. NO DISTRESS NOTED. FREQUENT ROUNDS MADE. CALL HOOKS WITHIN REACH.
[2020-06-09] VITALS (18 sets, daily range): BP systolic 119–168; BP diastolic 64–84
--- NOTE | 2020-06-09 00:10 | NUR ---
PT RESTING IN BED WITH EYES CLOSED. O2 N/C ON AT 2L. NO DISTRESS NOTED. TELE SR HR 90'S. PORT IS PATENT. SHARMA IS PATENT. RESP EVEN AND UNLABORED. NO DISTRESS NOTED. FREQUENT ROUNDS MADE. CALL HOOKS WITHIN REACH.
--- NOTE | 2020-06-09 02:05 | NUR ---
PT RESTING IN BED WITH EYES CLOSED. RESP EVEN AND UNLABORED. NO DISTRESS NOTED. TELE SR. FREQUENT ROUNDS MADE. CALL HOOKS WITHIN REACH.
--- NOTE | 2020-06-09 04:05 | NUR ---
RESTING IN BED WITH EYES CLOSED. VSS. RESP EVEN AND UNLABORED. NO DISTRESS NOTED. ASSESSMENT UNCHANGED. FREQUENT ROUNDS MADE. CALL HOOKS WITHIN REACH.
--- NOTE | 2020-06-09 05:10 | NUR ---
PT AWAKE RESTING IN BED. NUMEROUS ATTEMPTS MADE TO DRAW LABS FROM PTS CHEST PORT. FLUSHED WITHOUT ANY RESISTANCE, BUT NO BLOOD RETURN. NO SWELLING NOTED AT SITE. PT DENIES ANY DISCOMFORT AT PORT INSERTION SITE. IVF INFUSING WITHOUT ANY DIFFICULTY. LAB AWARE UNABLE TO GET BLOOD FROM CHEST PORT THIS A.M..
[2020-06-09 05:43] LABS: HEMATOCRIT 31.7 % (39.0-50.0); HEMOGLOBIN 9.1 g/dl (14.0-18.0); IMMATURE GRANULOCYTES 0.9 % (0.0-5.0); MEAN CORPUSCULAR HGB 26.7 pG CALC (26.0-32.0); MEAN CORPUSCULAR HGB CONC 28.7 g/dL CAL (32.0-36.0); NEUT# 9.76 thou/uL (1.82-7.42); RED BLOOD COUNT 3.41 mill/uL (4.70-6.10); RED CELL DISTRI WIDTH 15.1 % (11.5-15.5)
--- NOTE | 2020-06-09 06:05 | NUR ---
PT ASSESSMENT UNCHANGED. VSS. RESP EVEN AND UNLABORED. NO DISTRESS NOTED. OFFERS NO COMPLAINTS. FREQUENT ROUNDS MADE. CALL HOOKS WITHIN REACH.
[2020-06-09 06:08] LABS: ALBUMIN 2.3 g/dL (3.2-5.0); ALKALINE PHOSPHATASE 56 u/l (38-126); ANION GAP 10 (6-22 (CALC)); BILIRUBIN, TOTAL 0.5 mg/dL (0.0-1.4); BUN 9 mg/dL (8-23); BUN/CREATININE RATIO 18 (12-20 (CALC)); CARBON DIOXIDE 27 mmol/l (22-30); CHLORIDE 113 mmol/l (95-108); CREATININE 0.5 mg/dL (0.7-1.3); GFR > 60 ML/MIN (>=60 (CALC)); GFR FOR AFR.AMER. > 60 ML/MIN (>=60 (CALC)); MAGNESIUM 2.1 mg/dL (1.6-2.3); POTASSIUM 3.7 mmol/l (3.5-5.1); SGOT/AST 18 u/l (19-48); SODIUM 147 mmol/l (137-146); TOTAL PROTEIN 5.4 g/dL (6.3-8.2)
--- NOTE | 2020-06-09 07:11 | NUR ---
PT RESTING QUIETLY ON BED, DENIES ANY COMPLAINT AT THIS TIME, VITAL SIGNS STABLE. BLOOD SUGAR 58. NO COVERAGE NEEDED
--- NOTE | 2020-06-09 08:30 | NUR ---
SPOKE TO FAMILY ABOUT POSSIBLE REHAB FOR A FEW WEEKS
--- NOTE | 2020-06-09 10:11 | NUR ---
DRESSING CHANGE PER WOUND CARE TO LEFT HEEL. PLACED HEEL PROTECTOR BACK ON.
--- NOTE | 2020-06-09 10:15 | NUR ---
CLEANSED BUTTOCKS WITH SALINE AND USED BUTT PASTE LIBERALLY TO AREA.
--- NOTE | 2020-06-09 11:37 | NUR ---
pt taken by [employer] therapy for barrium swallow test.
--- NOTE | 2020-06-09 13:26 | NUR ---
PT DENIES WANTING ANY OF THE PUREED FOOD, REQUESTED APPLESAUCE AND PUDDING, WHICH HE ATE. STATES HE WILL EAT MORE AT DINNER TIME
--- NOTE | 2020-06-09 13:40 | NUR ---
ALMA SIMON CALLED AND SAID PT CAN BE PLACED ON A MECHANICAL SOFT DIET WITH GRAVY, AND CONTINUE THICKENED LIQUIDS.
--- NOTE | 2020-06-09 15:37 | NUR ---
CLEANED PT UP WITH COMPLETE BATH AND LINEN CHANGE, PT HAD BOWEL MOVEMENT. USED BUTT PASTE, PTS BUTTS PASTE TO AREA.
--- NOTE | 2020-06-09 16:06 | NUR ---
ADVISED PT THAT HIS WILL BE ALLOWED TO COME VISIT PT ANAY PER SUPERVIOR FOR A ONE TIME ONLY. STATES THAT SHE WILL BE HERE AROUND 7, ADVISED OF CONSENT TO SIGN FOR WAIVER. AGREES TO SIGNING. PT SMILING, APPEARS TO BE IN A MORE UPBEAT MOOD. 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
--- NOTE | 2020-06-09 18:11 | NUR ---
REPORT GIVEN TO YOSVANY SILVA ON MED SURG FLOOR, PT TAKEN OVER WITH MED, CHART AND MEDS TAKEN WITH PT.
--- NOTE | 2020-06-09 18:27 | NUR ---
PT ARRIVED FROM ICU ON BED WITH AIR MATTRESS. AXOX3. IV INFUSING INTO RIGHT CHEST PORT . O2 2L NC PT STATES HE DOES NOT WANT TO WEAR IT AT THIS TIME, NO RESP DISTRESS NOTED. TELE MONITOR PLACED ON THE PATIENT. SHARMA TO BEDSIDE DRAINAGE. PATIENT DENIES PAIN. REPOSITIONED FOR COMFORT, SIDE RAILS UP CALL LIGHT IN REACH BED LOCKED IN LOW POSITION. ALL SAFTY MEASURES IN PLACE WILL CONTINUE TO MONIOTR THE PATIENT.
[2020-06-10 03:05] VITALS: BP 127/66
[2020-06-10 06:20] LABS: HEMATOCRIT 28.9 % (39.0-50.0); HEMOGLOBIN 8.4 g/dl (14.0-18.0); IMMATURE GRANULOCYTES 0.9 % (0.0-5.0); MEAN CELL VOLUME 90.9 fL CALC (80.0-100.0); MEAN CORPUSCULAR HGB 26.4 pG CALC (26.0-32.0); MEAN CORPUSCULAR HGB CONC 29.1 g/dL CAL (32.0-36.0); NEUT# 7.69 thou/uL (1.82-7.42); RED BLOOD COUNT 3.18 mill/uL (4.70-6.10); RED CELL DISTRI WIDTH 15.4 % (11.5-15.5)
--- NOTE | 2020-06-10 06:30 | NUR ---
PATIENT IS ALERT AND ORIENTED TO PERSON AND PLACE. CALM. FLAT AFFECT. RESPIRATIONS EASY. SKIN WARM AND DRY. LEFT HEEL WRAPPED AND B/L HEELS WITH HEEL PROTECTORS IN PLACE. OPEN AREA TO BUTTOCK, BARRIER CREAM PRN. DENIES PAIN. FALL PRECAUTIONS. PT HAS RIGHT CHEST PORT, HOWEVER IT DOES NOT DRAW BACK TO OBTAIN LABS. LAB CALLED THIS A.M. TO DRAW LABS. PATIENT CURRENTLY RESTING IN BED WITH EYES CLOSED. BED IN LOW POSITION. CALL LIGHT WITHIN REACH
[2020-06-10 06:39] LABS: ANION GAP 10 (6-22 (CALC)); BUN 7 mg/dL (8-23); BUN/CREATININE RATIO 13 (12-20 (CALC)); CARBON DIOXIDE 26 mmol/l (22-30); CHLORIDE 110 mmol/l (95-108); CREATININE 0.5 mg/dL (0.7-1.3); GFR > 60 ML/MIN (>=60 (CALC)); GFR FOR AFR.AMER. > 60 ML/MIN (>=60 (CALC)); MAGNESIUM 1.9 mg/dL (1.6-2.3); POTASSIUM 3.9 mmol/l (3.5-5.1); SODIUM 142 mmol/l (137-146)
[2020-06-10 07:10] VITALS: BP 141/75
--- NOTE | 2020-06-10 07:10 | NUR ---
PATIENT IN BED AT THIS TIME. ER CALLED AND STATED THAT TELE WAS SHOWING ST ELEVATION. RESPIRATORY CALLED TO GET STAT EKG AT THIS TIME. PATIENTS VS TAKEN SEE INTERVENTIONS. PATIENT DENEIS ANY CHEST PAIN OR SHORTNESS OF BREATH. PATIENT IS ASYMPTOMATIC. EKG DONE AND GIVEN TO KAUSHIK MANCUSO AT THIS TIME. RIGHT CHEST PORT ACESSED AND RUNNING FLUILDS WITHOUT RESISTANCE. NO BLOOD RETURN IS ABLE TO BE RETRIEVED AT THIS TIME. LEFT HEAL DRESSING ARE INTACT AND BILATERAL HEALS ARE IN HEAL PROTECTORS AND ELEVATED AT THIS TIME. RIGHT ARM NOTED TO HAVING EDEMA NON PITTING AND WAS ELEVATED ON A PILLOW. SHARMA CATH DRAINING CLEAR YELLOW URINE AT THIS TIME. PATIENT IS ON AIR MATTRESS. SIDERAILS ARE UP CALL LIGHT WITHIN REACH.
--- NOTE | 2020-06-10 07:16 | NUR ---
06/09/20 Patient is seen for transfer training including rpeated sit to stand and SPT. He is also able to perform DBE and independent coughing although his cough is weak. The patient even managed to take 3 steps with FWW and mod assist of 2. He is progressing well and is an excellent rehab candidate to work on swallowing issues, independent ADLS with OT and PT for gait and balance training. Am Pac on this patient is 10 indicating rehab would be a good discharg destination.
[2020-06-10 10:30] VITALS: BP 127/66
[2020-06-10] MEDS ORDERED: AMOX/K CLAV875 M1 PO (10:35)
[2020-06-10] MEDS ORDERED: PROTONIX40 M2 PO (10:42)
[2020-06-10] MEDS ORDERED: MORPHINE SULFAT30 M1 PO (10:43)
--- NOTE | 2020-06-10 11:19 | NUR ---
PATIENT D/C AT THIS TIME PATIENT CALLED AND WENT OVER D/C WITH HER WELL PATIENT. BOTH VERBALIZED UNDERSTANDING OF D/C AT THIS TIME. PATIENT WILL BE GOING TO [facility] AND REPORT AT TIME OF DEPARTURE WILL BE CALLED TO ACCEPTING NURSE.
--- NOTE | 2020-06-10 11:58 | NUR ---
PATIENT IN BED AT THIS TIME ALERT AND ORIENTED. SIDERAILS UP X 2 CALL LIGHT WITHIN REACH AND PERSONAL ITEMS WITHIN REACH. PATIENTS SHARMA PATENT AND DRAINING AT THIS TIME FEET REMAIN ELEVATED UP ON ONE PILLOW AND PATIENT DENIES ANY PAIN. PATIENT WAS EXPLAINED AGAIN THAT HE WILL BE TRANSFER TO [facility] TODAY AROUND 1400. PATIENT VERBALIZES UNDERSTANDING.
--- NOTE | 2020-06-10 13:40 | NUR ---
LEFT HEAL DRESSING REMOVED AT THIS TIME. LEFT HEAL HAS SMALL DRIED AREA THAT IS CIRCULAR IN SHAPE AND WITHOUT TUNNELING. AREA CLEANSED WITH PROVIDINE [employer]UTIONS AND CLEAN 4X4 APPLIED WITH CURLEX APPLIED AT THIS TIME. PATIENT DENIES ANY PAIN WITH THIS DRESSING CHANGE.
--- NOTE | 2020-06-10 13:48 | NUR ---
Pt seen upright in bed A&O x4. He reported feeling nauseated and not wanting to eat. Pt refused PO trials. Education provided to pt about safe swallow strategies and aspiration precautions. Pt verbalized understanding and repeated the directions back to the PICKLER HELPER. Multiple swallows per bolus oral care 2x daily alternating liquids and solids checking in a mirror after meals to clear oral residue as well as a tongue sweep to feel for residue Pt was also provided education on the importance of following his current diet recommendation for nectar thick liquids and mechanical ground foods.
--- NOTE | 2020-06-10 14:05 | NUR ---
REPORT GIVEN TO TUBE BUILDER AT [facility] AT THIS TIME.
--- NOTE | 2020-06-10 14:21 | NUR ---
Discharge instructions given. Patient verbalizes understanding of same. Discharged in stable condition via Wheelchair to [facility] with *Other. All belongings sent with pt. PATIENT R PORT DEACCESSED AT THIS TIME AND AREA CLEANSED WITH NORMAL SALINE AND BIO PATCH APPLIED WITH A TEAGADERM DRESSING. PATIENT ASSISTED TO WHEELCHAIT AT THIS TIME WITH 2 ASSIST. PATIENT BELONGINGS GIVEN TO TRANSPORTED ALONG WITH D/C PACKET. PATIENT LEFT IN STABLE CONDITION AT THIS TIME.
--- NOTE | 2020-06-10 14:40 | NUR ---
Jacques attempted to see patient however he reported his stomach was not feeling well and he was about to discharge to [facility] in a few minutes.
== END 2020-06-10 14:19 | DRG 637 ==
LOC: ED 11:48 → ED-I 13:15 → ICU 13:15 → MS2 06-09 18:00
PROVIDERS: Emergency Medicine; Internal Medicine; Internal Medicine Nephrology; Nurse Practitioner Family; ADMIT Internal Medicine; ATTEND Internal Medicine
PROC: 0T9B70Z Drainage of Bladder with Drainage Device, Via Natural or Artificial Opening (ICD-10-PCS; principal; 2020-06-04)
DX: E11.10 Type 2 diabetes mellitus with ketoacidosis without coma (principal); L89.624 Pressure ulcer of left heel, stage 4; J18.9 Pneumonia, unspecified organism; E87.0 Hyperosmolality and hypernatremia; K92.1 Melena; E87.6 Hypokalemia; I95.9 Hypotension, unspecified; I11.0 Hypertensive heart disease with heart failure; I50.9 Heart failure, unspecified; E11.40 Type 2 diabetes mellitus with diabetic neuropathy, unspecified; D47.3 Essential (hemorrhagic) thrombocythemia; D50.0 Iron deficiency anemia secondary to blood loss (chronic); E86.0 Dehydration; M06.9 Rheumatoid arthritis, unspecified; M32.9 Systemic lupus erythematosus, unspecified; G89.29 Other chronic pain; E66.01 Morbid (severe) obesity due to excess calories; R19.7 Diarrhea, unspecified; R15.9 Full incontinence of feces; S30.810A Abrasion of lower back and pelvis, initial encounter; X58.XXXA Exposure to other specified factors, initial encounter; Z68.30 Body mass index [BMI] 30.0-30.9, adult; Z91.81 History of falling; Z79.891 Long term (current) use of opiate analgesic; Z74.01 Bed confinement status; Z79.4 Long term (current) use of insulin; Z20.822 Contact with and (suspected) exposure to COVID-19
CPT/HCPCS: S0164